=== PATIENT | male | born 1985 | race Two or more races ===

== ENCOUNTER 2019-02-05 09:18 | Emergency (ER) | payer SELFPAY ==
[~2019-02-05] VITALS: Ht 175.3 cm; Wt 124.3 kg
[2019-02-05 09:42] VITALS: BP 151/91
[2019-02-05] MEDS ORDERED: DIPH25CA58 PO (09:47)
[2019-02-05] MEDS ORDERED: FAMO-63 PO (09:47)
--- NOTE | 2019-02-05 09:48 | PHYS DOC ---
Adult General Chief Complaint Chief Complaint: SKIN RASH/ABSCESS HPI HPI Patient is a 33 year old Male who presents with a February 03 went to [facility] because he had a generalized hives all over his body. 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 Pat ient states he has been to [place] today. Patient states he just started taking the prednisone yesterday. Patient states they gave him prednisone and some other medications when he went to the hospital and that did help. Patient states that he just was to make sure he is not getting worse and he's can be okay for his flight home. Patient rates his discomfort a 3 out of 10. Review of Systems Review of Systems Constitutional: Denies fever or chills [] Integument: hives. Denies rash or skin lesions [] Neurologic: Denies headache, focal weakness or sensory changes [] All other systems were reviewed and found to be within normal limits, except as documented in this note. Physical Exam Physical Exam Constitutional: Well developed, well nourished, no acute distress, non-toxic appearance. [] Lungs & Thorax: Bilateral breath sounds clear to auscultation [] Abdomen: Bowel sounds normal, soft, no tenderness, no masses, no pulsatile masses. [] Skin: Generalized hives. Warm, dry, no erythema, no rash. [] Extremities; No tenderness, no cyanosis, no clubbing, ROM intact, no edema. [] Neurologic: Alert and oriented X 3, normal motor function, normal sensory function, no focal deficits noted. [] Psychologic: Affect normal, judgement normal, mood normal. [] EKG EKG [] Radiology/Procedures Radiology/Procedures [] Course & Med Decision Making Course & Med Decision Making Patient is a 33 year old Male who presents with a February 03 went to [facility] because he had a generalized hives all over his body. 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 Patient states he has been to [place] today. Patient states he just started taking the prednisone yesterday. Patient states they gave him prednisone and some other medications when he went to the hospital and that did help. Patient states that he just was to make sure he is not getting worse and he's can be okay for his flight home. Patient rates his discomfort a 3 out of 10. Patient has hives to bilateral forearms, thighs, armpits. No rash on face, facial swelling, mouth swelling or hives in the mouth. Patient denies any mouth swelling or itching to her throat itching. Patient denies any shortness of breath or chest pain. Patient states he is just very itchy. Patient is told to continue taking the prednisone as prescribed and I will also prescribe him Pepcid and Benadryl to go with this. Patient is told that he needs to take these as prescribed. Patient states he has not used any new soaps or detergents or lotions and has not been out in the [place] or doing any kind of like a yard work. Patient is likely allergic to something at the hotel. Patient is given Benadryl and Pepcid in the emergency room as he has already taken his prednisone today taken his prednisone today. Dragon Disclaimer Dragon Disclaimer This electronic medical record was generated, in whole or in part, using a voice recognition dictation system. Departure Departure Impression: Primary Impression: Hives Disposition: 01 HOME, SELF-CARE Condition: STABLE Patient Instructions: Hives Additional Instructions: Take all medications as prescribed. Follow up with a primary care doctor as soon as possible if needed. Scripts Diphenhydramine Hcl (BENADRYL) 25 Mg Capsule 25 MG PO Q6HRS for 5 Days, #20 CAP Prov: ISABELLA CASTRO APRN 02/05/19 Famotidine (PEPCID) 20 Mg Tablet 20 MG PO BID for 5 Days, #10 TAB Prov: ISABELLA CASTRO APRN 02/05/19 ISABELLA CASTRO APRN Feb 05, 2019 09:48
[2019-02-05] MEDS: diphenhydrAMINE HCL 25 MG CAPSULE PO ONE (09:57)
[2019-02-05] MEDS: IBUPROFEN 400 MG TABLET. PO ONE (09:57)
[2019-02-05] MEDS: FAMOTIDINE 20 MG TABLET. PO ONE (09:57)
== END 2019-02-05 10:11 | disposition home or self-care (01) ==
LOC: ER 09:18
DX: L50.9 Urticaria, unspecified (principal)
CPT/HCPCS: 99284; Q0163